=== PATIENT | male | born 1960 | race Hispanic/Latino ===

== ENCOUNTER → 2017-09-28 | Outpatient (CLI) | payer OTHER | END | disposition home or self-care (01) | LOC: RAH 13:32 | PROVIDERS: ATTEND Orthopaedic Surgery | DX: S82.891A Other fracture of right lower leg, initial encounter for closed fracture (principal); M19.071 Primary osteoarthritis, right ankle and foot; M77.51 Other enthesopathy of right foot and ankle; X58.XXXA Exposure to other specified factors, initial encounter; Y93.89 Activity, other specified; Y92.89 Other specified places as the place of occurrence of the external cause; Y99.8 Other external cause status | CPT/HCPCS: 73721 ==

== ENCOUNTER → 2018-09-27 | Outpatient (CLI) | payer OTHER | END | disposition home or self-care (01) | LOC: RAH 10:06 | PROVIDERS: ATTEND Orthopaedic Surgery | DX: M13.812 Other specified arthritis, left shoulder (principal); M25.712 Osteophyte, left shoulder | CPT/HCPCS: 73221 ==

== ENCOUNTER 2018-11-08 06:58 | Day surgery (SDC) | payer OTHER ==
[2018-11-07 15:13] VITALS: BP 150/86
[2018-11-08] VITALS (16 sets, daily range): BP systolic 121–148; BP diastolic 60–94
[~2018-11-08] VITALS: Ht 175.3 cm; Wt 104.4 kg
[~2018-11-08 06:58] MED LIST: AMLO5TAB9 PO
[2018-11-08] MEDS ORDERED: LACTATED RINGERS 1000ML 1,000 ML IV ONE (07:40)
--- NOTE | 2018-11-08 07:45 | NUR ---
POTENTIAL FOR INFECTION: SHAVED LEFT SHOULDER / UPPER ARM PER GANESH, FOLLOWED BY WIPING WITH DARI: 2% CHLORHEXIDINE GLUCONATE CLOTH PATIENTS PREOP SKIN PREP.
[2018-11-08] MEDS ORDERED: PROPOFOL 10 MG/ML 20ML VIAL IV ONE (07:53)
[2018-11-08] MEDS ORDERED: SUCCINYLCHOLINE 200MG/10ML SYR ONE (07:53)
[2018-11-08] MEDS ORDERED: LIDOCAINE PF 2% 5ML ABBOJECT ONE ×2 (07:53→08:35)
[2018-11-08] MEDS ORDERED: ROCURONIUM 10MG/1ML SYR 10 MG/ML ML ONE (07:53)
[2018-11-08] MEDS ORDERED: FENTANYL CITRATE PF 50 MCG/1 ML 2ML VIAL ONE ×2 (07:54→12:00)
[2018-11-08] MEDS ORDERED: EPINEPHRINE 1 MG/ML 30ML VIAL IJ ONE (07:55)
[2018-11-08] MEDS ORDERED: ROPIVACAINE 0.5% 5MG/ML 30ML IJ ONE (07:57)
[2018-11-08] MEDS ORDERED: MIDAZOLAM HCL 1 MG/ML 2ML VIAL ONE (07:59)
[2018-11-08] MEDS ORDERED: CEFAZOLIN 3GM /D5W 100ML 100 ML IV SCH (08:00)
[2018-11-08] MEDS: CEFAZOLIN SODIUM 1 GM VIAL ONE ×2 (08:03→08:48)
[2018-11-08] MEDS ORDERED: HYDRALAZINE HCL 20 MG/ML VIAL ONE (09:56)
[2018-11-08] MEDS ORDERED: KETOROLAC TROMETHAMINE 30MG/ML ONE (11:52)
[2018-11-08] MEDS ORDERED: GLYCOPYRROLATE 1 MG/5 ML SYRINGE ONE (11:52)
[2018-11-08] MEDS ORDERED: ONDANSETRON HCL 4 MG/2 ML VIAL ONE (11:52)
[2018-11-08] MEDS ORDERED: NEOSTIGMINE 5MG/5ML SYR IV ONE (11:53)
[2018-11-08] MEDS ORDERED: CEPH500B PO (12:08)
[2018-11-08] MEDS ORDERED: NAPR-1192 PO (12:08)
[2018-11-08] MEDS ORDERED: HYDR-4457 PO (12:08)
[2018-11-08] MEDS ORDERED: MEPERIDINE-PF 25 MG/ML SYG ONE ×2 (12:24→12:36)
== END 2018-11-08 14:25 | disposition home or self-care (01) ==
LOC: DAH 06:58
PROVIDERS: ATTEND Orthopaedic Surgery
DX: M75.42 Impingement syndrome of left shoulder (principal); M19.012 Primary osteoarthritis, left shoulder; I10 Essential (primary) hypertension; K21.9 Gastro-esophageal reflux disease without esophagitis; N40.0 Benign prostatic hyperplasia without lower urinary tract symptoms; Z79.899 Other long term (current) drug therapy; Z98.890 Other specified postprocedural states
CPT/HCPCS: 29824; 29826; 29827; A4565; A4600; A4649 ×5; A4930; A6204; C1713; G0168; J0171; J0330; J0360; J0690; J1885; J2001 ×2; J2175 ×2; J2250; J2405; J2704; J2710; J2795; J3010 ×2; J3490; J7030; J7120

== ENCOUNTER → 2019-02-20 | Outpatient (CLI) | payer OTHER ==
[~2019-02-20] MED LIST changes: +CEPH500B PO; +HYDR-4457 PO; +NAPR-1192 PO
== END | disposition home or self-care (01) ==
LOC: RAH 10:07
PROVIDERS: ATTEND Internal Medicine
DX: K76.0 Fatty (change of) liver, not elsewhere classified (principal)
CPT/HCPCS: 76700

== ENCOUNTER → 2020-01-07 | Outpatient (CLI) | payer OTHER | END | disposition home or self-care (01) | LOC: RAH 10:00 | PROVIDERS: ATTEND Internal Medicine | DX: M48.07 Spinal stenosis, lumbosacral region (principal); M47.26 Other spondylosis with radiculopathy, lumbar region | CPT/HCPCS: 72148 ==

== ENCOUNTER → 2021-10-01 | Outpatient (CLI) | payer OTHER ==
[~2021-10-01] MED LIST changes: +AMLO-257 PO; -AMLO5TAB9 PO
[2021-10-01 09:01] LABS: BASOPHILS % (AUTO) 1.2 % (0.0-5.0); EOSINOPHILS % (AUTO) 4.7 % (0.0-8.0); HEMATOCRIT 42.5 % (42-54); LYMPHOCYTES % (AUTO) 46.6 % (21.0-51.0); MEAN CORPUSCULAR HEMOGLOBIN 29.9 pg (27.0-33.0); MEAN CORPUSCULAR VOLUME 93.4 fL (79-99); MONOCYTES % (AUTO) 9.9 % (3.0-13.0); NEUTROPHILS % (AUTO) 37.6 % (40.0-77.0); PLATELET COUNT (AUTO) 250 K/uL (130-400); RED BLOOD CELL COUNT(AUTO) 4.55 MIL/uL (4.50-6.20); RED CELL DISTRIBUTION WIDTH 12.4 % (11.0-15.5); WHITE BLOOD COUNT (AUTO) 5.1 K/uL (4.8-10.8)
[2021-10-01 09:23] LABS: BILIRUBIN,TOTAL 0.2 mg/dL (0.2-1.0); CREATININE 0.8 mg/dL (0.5-1.5); POTASSIUM 4.5 mmol/L (3.5-5.1); THYROID STIMULATING HORMONE 3.01 uIU/mL (0.36-3.74); TOTAL PROTEIN, SERUM 8.2 g/dL (6.0-8.3)
== END | disposition home or self-care (01) ==
LOC: LAB 07:36
PROVIDERS: ATTEND Internal Medicine
DX: Z12.5 Encounter for screening for malignant neoplasm of prostate (principal); E78.5 Hyperlipidemia, unspecified; I10 Essential (primary) hypertension; Z00.00 Encounter for general adult medical examination without abnormal findings; Z13.220 Encounter for screening for lipoid disorders; Z13.29 Encounter for screening for other suspected endocrine disorder
CPT/HCPCS: 36415; 80053; 80061; 84153; 84443; 85025

== ENCOUNTER → 2022-03-09 | Outpatient (CLI) | payer OTHER | END | disposition home or self-care (01) | LOC: RAH 09:26 | PROVIDERS: ATTEND Internal Medicine | DX: M17.12 Unilateral primary osteoarthritis, left knee (principal) | CPT/HCPCS: 73560 ==

== ENCOUNTER → 2022-06-21 | Outpatient (CLI) | payer OTHER ==
[2022-06-21 10:05] LABS: BASOPHILS % (AUTO) 1.2 % (0.0-5.0); EOSINOPHILS % (AUTO) 3.1 % (0.0-8.0); HEMATOCRIT 40.8 % (42-54); LYMPHOCYTES % (AUTO) 34.9 % (21.0-51.0); MEAN CORPUSCULAR HEMOGLOBIN 31.1 pg (27.0-33.0); MEAN CORPUSCULAR HGB CONC 32.8 g/dL (32.0-36.0); MEAN CORPUSCULAR VOLUME 94.7 fL (79-99); MONOCYTES % (AUTO) 9.5 % (3.0-13.0); NEUTROPHILS % (AUTO) 51.2 % (40.0-77.0); PLATELET COUNT (AUTO) 262 K/uL (130-400); RED BLOOD CELL COUNT(AUTO) 4.31 MIL/uL (4.50-6.20); RED CELL DISTRIBUTION WIDTH 12.7 % (11.0-15.5); WHITE BLOOD COUNT (AUTO) 6.7 K/uL (4.8-10.8)
[2022-06-21 10:17] LABS: INR 0.93 (0.85-1.15); PROTHROMBIN TIME 9.7 SEC (9.6-11.6)
[2022-06-21 10:18] LABS: PARTIAL THROMBOPLASTIN TIME 27.5 SEC (26.3-35.5)
[2022-06-21 10:21] LABS: ALBUMIN 3.4 g/dL (3.5-5.0); CREATININE 0.7 mg/dL (0.5-1.5); POTASSIUM 4.5 mmol/L (3.5-5.1); TOTAL PROTEIN, SERUM 7.5 g/dL (6.0-8.3)
== END | disposition home or self-care (01) ==
LOC: RAH 09:24
PROVIDERS: ATTEND Internal Medicine
DX: Z01.818 Encounter for other preprocedural examination (principal); E78.5 Hyperlipidemia, unspecified; I10 Essential (primary) hypertension; M47.815 Spondylosis without myelopathy or radiculopathy, thoracolumbar region
CPT/HCPCS: 36415; 71046; 80053; 80061; 85025; 85610; 85730

== ENCOUNTER 2022-07-02 19:00 | Inpatient (IN) | payer OTHER ==
[~2022-07-02] VITALS: Ht 175.3 cm; Wt 104.8 kg
[2022-07-02 10:52] VITALS: BP 158/92
[2022-07-02 10:54] LABS: BASOPHILS % (AUTO) 1.3 % (0.0-5.0); EOSINOPHILS % (AUTO) 3.4 % (0.0-8.0); HEMATOCRIT 39.2 % (42-54); LYMPHOCYTES % (AUTO) 31.6 % (21.0-51.0); MEAN CORPUSCULAR HEMOGLOBIN 31.1 pg (27.0-33.0); MEAN CORPUSCULAR HGB CONC 33.7 g/dL (32.0-36.0); MEAN CORPUSCULAR VOLUME 92.5 fL (79-99); NEUTROPHILS % (AUTO) 53.6 % (40.0-77.0); PLATELET COUNT (AUTO) 246 K/uL (130-400); RED BLOOD CELL COUNT(AUTO) 4.24 MIL/uL (4.50-6.20); RED CELL DISTRIBUTION WIDTH 12.6 % (11.0-15.5); WHITE BLOOD COUNT (AUTO) 6.7 K/uL (4.8-10.8)
[2022-07-02 10:58] LABS: APPEARANCE,URINE CLEAR (CLEAR); BILIRUBIN,URINE NEGATIVE (NEGATIVE); COLOR,URINE LIGHT-YELLOW (YELLOW); GLUCOSE, URINE (UA) NEGATIVE (NEGATIVE); KETONES,URINE NEGATIVE (NEGATIVE); LEUKOCYTE ESTERASE ,URINE NEGATIVE Leu/uL (NEGATIVE); NITRATE,URINE NEGATIVE (NEGATIVE); PROTEIN,URINE NEGATIVE (NEGATIVE); UROBILINOGEN,URINE 0.2 mg/dL (0.2-1.0)
[2022-07-02 11:03] LABS: INR 0.93 (0.85-1.15); PROTHROMBIN TIME 9.8 SEC (9.6-11.6)
[2022-07-02 11:03] LABS: MUCUS,URINE RARE LPF (None Seen); RBC,URINE 0-1 /HPF (0-1); SQUAMOUS EPITHELIAL CELL,UR RARE /HPF (0-2); WBC,URINE 0-1 /HPF (0-1)
[2022-07-02 11:04] LABS: ALBUMIN 3.5 g/dL (3.5-5.0); CARBON DIOXIDE 26 mmol/L (21-32); CHLORIDE 106 mmol/L (101-111); CREATININE 0.7 mg/dL (0.5-1.5); GLOMERULAR FILTR. RATE CALC 121 mL/min (>60); GLUCOSE,RANDOM 100 mg/dL (70-105); PARTIAL THROMBOPLASTIN TIME 27.5 SEC (26.3-35.5); SODIUM SERUM 140 mmol/L (136-145); UREA NITROGEN, BLOOD 13 mg/dL (7-18)
[2022-07-02 11:06] LABS: CRP QUANTITATIVE < 2.00 mg/L (0.00-9.0)
[~2022-07-02 19:00] MED LIST changes: -CEPH500B PO; -HYDR-4457 PO; +IBUP-2784 PO; -NAPR-1192 PO; +PHARMACY COMMUNICATION MISC SCH
[2022-07-05] VITALS (27 sets, daily range): BP systolic 105–176; BP diastolic 65–101
[2022-07-05] MEDS ORDERED: KETOROLAC 30MG VIAL (30MG/ML) ONE (04:56)
[2022-07-05] MEDS ORDERED: TRANEXAMIC ACID 1000MG/10ML ONE ×2 (04:56→05:34)
[2022-07-05] MEDS ORDERED: ROPIVACAINE 0.5% 5MG/ML 30ML IJ ONE ×2 (04:56→04:59)
[2022-07-05] MEDS ORDERED: DEXMEDETOMIDINE HCL 200 MCG/2 ML VIAL IV ONE (04:59)
[2022-07-05] MEDS: CEFAZOLIN SODIUM 1 GM VIAL IVPB SCH ×2 (06:00→07:25)
[2022-07-05] MEDS ORDERED: LACTATED RINGERS 1000ML 1,000 ML IV ONE (06:13)
[2022-07-05] MEDS ORDERED: MIDAZOLAM HCL 1 MG/ML 2ML VIAL ONE (06:46)
[2022-07-05] MEDS ORDERED: ROCURONIUM 10MG/1ML SYR 10 MG/ML ML ONE (06:46)
[2022-07-05] MEDS ORDERED: LIDOCAINE PF 100MG/5ML (2%) SYRINGE 5ML ONE (06:46)
[2022-07-05] MEDS ORDERED: DEXAMETHASONE SOD PHOSPHATE 10MG/ML 1ML VIAL ONE (06:46)
[2022-07-05] MEDS ORDERED: PROPOFOL 10 MG/ML 20ML VIAL IV ONE (06:46)
[2022-07-05] MEDS ORDERED: ONDANSETRON 4MG INJ ONE (06:46)
[2022-07-05] MEDS ORDERED: FENTANYL CITRATE PF 50 MCG/1 ML 5ML AMP IV ONE (06:47)
[2022-07-05] MEDS ORDERED: PHENYLEPHRINE HCL 10 MG/ML 1ML VIAL IV ONE (06:52)
[2022-07-05] MEDS ORDERED: EPHEDRINE SULFATE 50 MG/ML AMPULE ONE (06:52)
[2022-07-05] MEDS ORDERED: MEPERIDINE-PF 25 MG/ML SYG ONE ×4 (07:46→10:13)
[2022-07-05] MEDS: 0.9%NACL 1000ML 1,000 ML IV SCH ×2 (09:30→23:34)
[2022-07-05] MEDS ORDERED: LIDOCAINE HCL-MPF 1% 2ML VIAL IV PRN (09:30)
[2022-07-05] MEDS ORDERED: DiphenhydrAMINE HCL 50 MG/ML VIAL IVP PRN (09:30)
[2022-07-05] MEDS ORDERED: FERROUS FUMARATE 324 MG TABLET PO PRN (09:30)
[2022-07-05] MEDS ORDERED: KCL 20 MEQ ERTAB PO PRN (09:30)
[2022-07-05] MEDS ORDERED: POTASSIUM CHLORIDE 20MEQ/100ML 100 ML IV PRN (09:30)
[2022-07-05] MEDS ORDERED: ONDANSETRON 4MG INJ IVP PRN (09:30)
[2022-07-05] MEDS ORDERED: CALCIUM CARB 500MG PO PRN (09:30)
[2022-07-05] MEDS ORDERED: TRAMADOL HCL 50 MG TABLET PO PRN (09:30)
[2022-07-05] MEDS ORDERED: POTASSIUM CHLORIDE 10% ELIXIR 20 MEQ/15 ML UDCUP PO PRN (09:30)
[2022-07-05] MEDS: KETOROLAC 15MG/ML VIAL (15MG/ML) IV SCH ×2 (10:53→18:16)
[2022-07-05] MEDS: HYDROCODONE/ACETAMINOPHEN 5/325 MG TAB PO PRN ×2 (12:05→18:16)
[2022-07-05] MEDS: CEFAZOLIN SODIUM 1 GM VIAL IVP SCH ×2 (15:04→23:31)
[2022-07-05] MEDS: GABAPENTIN 100 MG CAPSULE PO SCH ×2 (15:04→20:19)
[2022-07-05] MEDS: DOCUSATE SODIUM 100 MG CAP PO SCH (20:21)
[2022-07-05] MEDS: CYCLOBENZAPRINE HCL 10 MG TABLET PO PRN (20:21)
[2022-07-05] MEDS: KETOROLAC 15MG/ML VIAL (15MG/ML) IV PRN (23:33)
[2022-07-06 00:06] VITALS: BP 142/80
[2022-07-06 04:21] VITALS: BP 151/78
[2022-07-06] MEDS: HYDROCODONE/ACETAMINOPHEN 5/325 MG TAB PO PRN ×3 (04:57→16:38)
[2022-07-06 05:29] LABS: HEMATOCRIT 32.3 % (42-54); MEAN CORPUSCULAR HEMOGLOBIN 31.5 pg (27.0-33.0); MEAN CORPUSCULAR HGB CONC 33.4 g/dL (32.0-36.0); MEAN CORPUSCULAR VOLUME 94.2 fL (79-99); RED BLOOD CELL COUNT(AUTO) 3.43 MIL/uL (4.50-6.20); RED CELL DISTRIBUTION WIDTH 12.1 % (11.0-15.5); WHITE BLOOD COUNT (AUTO) 9.9 K/uL (4.8-10.8)
[2022-07-06] MEDS: 0.9%NACL 1000ML 1,000 ML IV SCH (05:30)
[2022-07-06 05:38] LABS: CREATININE 0.9 mg/dL (0.5-1.5); POTASSIUM 4.3 mmol/L (3.5-5.1)
[2022-07-06] MEDS: KETOROLAC 15MG/ML VIAL (15MG/ML) IV PRN ×2 (06:23→20:24)
[2022-07-06 07:56] VITALS: BP 161/83
[2022-07-06] MEDS: POLYETHYLENE GLYCOL 3350 17 GM POWD.PACK PO SCH (09:16)
[2022-07-06] MEDS: CYCLOBENZAPRINE HCL 10 MG TABLET PO PRN (09:16)
[2022-07-06] MEDS: DOCUSATE SODIUM 100 MG CAP PO SCH ×2 (09:16→20:23)
[2022-07-06] MEDS: ASPIRIN 325MG TAB PO SCH (09:17)
[2022-07-06] MEDS: GABAPENTIN 100 MG CAPSULE PO SCH ×3 (09:17→20:23)
[2022-07-06] MEDS: AMLODIPINE 5 MG TAB PO SCH (09:17)
[2022-07-06 12:00] VITALS: BP 156/82
[2022-07-06 16:00] VITALS: BP 180/90
[2022-07-06 20:59] VITALS: BP 170/79
[2022-07-07 00:09] VITALS: BP 159/84
[2022-07-07] MEDS: HYDROCODONE/ACETAMINOPHEN 5/325 MG TAB PO PRN ×3 (03:16→13:08)
[2022-07-07 04:11] VITALS: BP 156/79
[2022-07-07] MEDS: KETOROLAC 15MG/ML VIAL (15MG/ML) IV PRN (07:21)
[2022-07-07] MEDS: CYCLOBENZAPRINE HCL 10 MG TABLET PO PRN (07:21)
[2022-07-07 07:45] VITALS: BP 161/88
[2022-07-07] MEDS: DOCUSATE SODIUM 100 MG CAP PO SCH (08:04)
[2022-07-07] MEDS: POLYETHYLENE GLYCOL 3350 17 GM POWD.PACK PO SCH (08:04)
[2022-07-07] MEDS: ASPIRIN 325MG TAB PO SCH (08:04)
[2022-07-07] MEDS: GABAPENTIN 100 MG CAPSULE PO SCH ×2 (08:16→13:07)
[2022-07-07] MEDS ORDERED: HYDR-4060 PO (10:37)
[2022-07-07] MEDS ORDERED: ASPI-1026 PO (10:37)
[2022-07-07] MEDS ORDERED: DOCU-116 PO (10:37)
[2022-07-07] MEDS ORDERED: CYCL-309 PO (10:37)
[2022-07-07] MEDS ORDERED: GABA100C PO (10:37)
[2022-07-07 11:23] VITALS: BP 127/64
[2022-07-07] MEDS: AMLODIPINE 5 MG TAB PO SCH (13:13)
[2022-07-08] MEDS ORDERED: BISACODYL 10 MG SUPP.RECT RC PRN (09:30)
== END 2022-07-07 15:30 | disposition home health service (06) | DRG 470 ==
LOC: DAHIP 07-05 06:00 → 4BH 07-05 11:05
PROVIDERS: ADMIT Student in an Organized Health Care Education/Training Program; ATTEND Student in an Organized Health Care Education/Training Program
PROC: 0SRD0J9 Replacement of Left Knee Joint with Synthetic Substitute, Cemented, Open Approach (ICD-10-PCS; principal; 2022-07-05 07:05)
DX: M17.12 Unilateral primary osteoarthritis, left knee (principal); D62 Acute posthemorrhagic anemia; Z20.822 Contact with and (suspected) exposure to COVID-19
CPT/HCPCS: 36415; 73560; 80048; 81001; 82040; 84134; 85025; 85027; 85610; 85730; 86140; 87088; 87426; 87641; 97039; G0378; J0690; J1100; J1885; J2001; J2175; J2250; J2370; J2405; J2704; J2795; J3010; J3490; J7030; J7120

== ENCOUNTER → 2022-10-25 | Outpatient (CLI) | payer OTHER ==
[~2022-10-25] MED LIST changes: +ASPI-1026 PO; +CYCL-309 PO; +DOCU-116 PO; +GABA100C PO; +HYDR-4060 PO; -IBUP-2784 PO; -PHARMACY COMMUNICATION MISC SCH
== END | disposition home or self-care (01) ==
LOC: RAH 10:00
PROVIDERS: ATTEND Nurse Practitioner
DX: R60.0 Localized edema (principal)
CPT/HCPCS: 93971